=== PATIENT | male | born 1950 | race Caucasian/White ===

== ENCOUNTER 2020-04-12 20:18 | Emergency (ER) | payer OTHER ==
[~2020-04-12] VITALS: Ht 167.6 cm; Wt 77.1 kg
[2020-04-12] MEDS ORDERED: PLAVIX75 MG (20:39)
[2020-04-12] MEDS ORDERED: TOPROL XL25 M1 (20:39)
== END 2020-04-12 22:53 | disposition home or self-care (01) ==
LOC: ER 20:18
DX: S13.8XXA Sprain of joints and ligaments of other parts of neck, initial encounter (principal); S00.01XA Abrasion of scalp, initial encounter; W26.8XXA Contact with other sharp object(s), not elsewhere classified, initial encounter; Y93.89 Activity, other specified; Y92.018 Other place in single-family (private) house as the place of occurrence of the external cause; Y99.8 Other external cause status